=== PATIENT | female | born 1990 | race Caucasian/White ===

== ENCOUNTER 2020-05-08 06:44 | Emergency (ER) | payer OTHER ==
[~2020-05-08] VITALS: Ht 149.9 cm; Wt 40.4 kg
[~2020-05-08 06:44] MED LIST: ABILIFY15 MG PO; BENADRYL25 MG; CELEXA 20 MG TA20 M1; CITRANATAL 901 EAC1; CLONAZEPAM 1 MG1 M1 PO; CRUTCH1 EACH MC; DESYREL50 MG PO; KEFLEX500 MG PO; LORTAB 7.5/5001 TA1 PO; MACROBID 100 M100 M1 PO; NOHOMEMEDICATIONS; PROZAC20 MG PO; TEGRETOL XR100 MG PO; ULTRAM50 MG PO; VICODIN 5-5001 EACH; XANAX1 MG PO
[2020-05-08 07:10] LABS: URINE BILIRUBIN NEGATIVE (Negative); URINE BLOOD 3+ (Negative); URINE CLARITY CLEAR; URINE COLOR YELLOW; URINE GLUCOSE-RANDOM NEGATIVE (Negative); URINE KETONES NEGATIVE (Negative); URINE LEUKOCYTES-REFLEX NEGATIVE (Negative); URINE NITRITE-REFLEX NEGATIVE (Negative); URINE PROTEIN NEGATIVE (Negative)
[2020-05-08 07:18] LABS: AMP/METHAMP POSITIVE (Negative); BARBITURATES Negative (Negative); BENZODIAZEPINES POSITIVE (Negative); COCAINE Negative (Negative); METHADONE Negative (Negative); OPIATES Negative (Negative); PCP Negative (Negative); THC POSITIVE (Negative)
[2020-05-08 07:24] LABS: AMORPHOUS URATES Many /LPF (None Seen); BACTERIA-REFLEX 1-9 Few /HPF (None Seen); CASTS None Seen /LPF (None Seen); MUCUS None Seen strn/LPF (None Seen); SQUAMOUS 0-3 Few /LPF (0-3); URINE RBC 3-10 Few /HPF (0-2); URINE WBC-REFLEX 0-5 Rare /HPF (0-5)
[2020-05-08 07:40] LABS: ABSOLUTE BASOPHILS 0.1 thou/uL (0.0-0.2); ABSOLUTE EOSINOPHILS 0.1 thou/uL (0.0-0.7); ABSOLUTE LYMPHOCYTES 2.7 thou/uL (0.8-5.3); ABSOLUTE MONOCYTES 0.6 thou/uL (0.0-1.2); ABSOLUTE NEUTROPHILS 6.4 thou/uL (1.6-8.1); BASOPHILS 0.7 %; EOSINOPHILS 1.5 %; HEMATOCRIT 36.8 % (37.0-47.0); HEMOGLOBIN 12.8 gm/dL (12.0-15.0); LYMPHOCYTES 27.4 %; MCH 31.7 pg (26.0-34.0); MCHC 34.7 g/dL (28.0-37.0); MCV 91.4 fL (80.0-100.0); MONOCYTES 5.9 %; MPV 7.8 fl. (7.2-11.1); NUCLEATED RBCS 0 /100WBC; PLATELET COUNT* 287 thou/uL (150-400); POLYS 64.5 %; RBC 4.03 mil/uL (4.20-5.00); RDW-CV 13.1 % (10.5-14.5); WBC 9.9 thou/uL (4.0-11.0)
[2020-05-08 07:44] LABS: CALCIUM 9.2 mg/dL (8.5-10.1); CREATININE 0.9 mg/dL (0.6-1.3); POTASSIUM 3.9 mmol/L (3.5-5.1)
[2020-05-08 07:54] LABS: ALBUMIN 3.8 g/dL (3.4-5.0); TOTAL BILIRUBIN 0.3 mg/dL (<0.1-1.0)
[2020-05-08] MEDS ORDERED: IBUPROFEN 800800 M1 PO (10:13)
[2020-05-08] MEDS ORDERED: NORCO 5-325 TA1 EAC2 PO (10:13)
[2020-05-08 10:21] VITALS: BP 115/77
== END 2020-05-08 10:21 | disposition home or self-care (01) ==
LOC: M.ERS 06:44
PROVIDERS: Emergency Medicine; Emergency Medicine Emergency Medical Services
DX: R10.84 Generalized abdominal pain (principal); M41.9 Scoliosis, unspecified; Z79.899 Other long term (current) drug therapy